=== PATIENT | male | born 1965 | race Caucasian/White ===

== ENCOUNTER 2020-03-20 15:14 | Emergency (ER) | payer OTHER ==
[2020-03-20] MEDS ORDERED: Sodium Chloride 0.9% 10 ML Syringe FLUSH PRN (15:35)
[2020-03-20] MEDS ORDERED: Aspirin 81 MG Tab.Chew PO ONE (15:40)
--- NOTE | 2020-03-20 16:04 | EDM.PDOC ---
ED HPI GENERAL MEDICAL PROBLEM - General Chief Complaint: Chest Pain Stated Complaint: CHEST PAIN [facility] Time Seen by Provider: 03/20/20 15:35 Source of Information: Reports: Patient History Limitations: Reports: No Limitations - History of Present Illness INITIAL COMMENTS - FREE TEXT/NARRATIVE: Patient is a 54-year-old male presenting to the emergency department with com plaints of left-sided chest pain. He states onset was around noon today and he has had 3 episodes of significantly worsening pain which resolves after a few minutes. 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 Prior to coming to the ER, [facility] to ensure that this is just a flareup of his Teitze syndrome as opposed to cardiac. States that the [facility] was found to be normal, however they still sent him to the ER for a further cardiac work-up. He states that direct left of his upper sternum is tender to palpation and radiates throughout the left side of his chest. He denies any shortness of breath or diaphoresis. Left Chest Pain Score (Numeric/FACES): 8 - Related Data Allergies Allergy/AdvReac Type Severity Reaction Status Date / Time No Known Allergies Allergy Verified 03/20/20 15:26 Home Meds: Home Meds Aspirin [Miya Chewable Aspirin] 1 tab PO DAILY 03/20/20 [History] Lisinopril/Hydrochlorothiazide [Lisinopril-HCTZ 10-12.5 MG] 0 mg PO DAILY 03/20/20 [History] Omeprazole 20 mg PO DAILY 03/20/20 [History] buPROPion [Wellbutrin] 0 mg PO DAILY 03/20/20 [History] Past Medical History HEENT History: Reports: Impaired Vision Cardiovascular History: Reports: High Cholesterol, Hypertension, Other (See Below) Other Cardiovascular History: Tietze Syndrome Respiratory History: Reports: None Gastrointestinal History: Reports: GERD Genitourinary History: Reports: None Neurological History: Reports: None Psychiatric History: Reports: Depression Endocrine/Metabolic History: Reports: Obesity/BMI 30+ Hematologic History: Reports: None Immunologic History: Reports: None Oncologic (Cancer) History: Reports: None Dermatologic History: Reports: None - Infectious Disease History Infectious Disease History: Reports: None - Past Surgical History GI Surgical History: Reports: Hernia Repair/Other Musculoskeletal Surgical History: Reports: Knee Replacement, Other (See Below) Other Musculoskeletal Surgeries/Procedures:: Hand Surgeries Social & Family History - Tobacco Use Smoking Status *Q: Never Smoker - Caffeine Use Caffeine Use: Reports: Coffee - Recreational Drug Use Recreational Drug Use: No ED ROS GENERAL - Review of Systems Review Of Systems: See Below Constitutional: Reports: No Symptoms. Denies: Fever, Chills, Weakness HEENT: Reports: No Symptoms Respiratory: Reports: No Symptoms. Denies: Shortness of Breath, Wheezing, Cough Cardiovascular: Reports: Chest Pain. Denies: Dyspnea on Exertion, Edema, Lightheadedness, Palpitations, Syncope Endocrine: Reports: No Symptoms GI/Abdominal: Reports: No Symptoms : Reports: No Symptoms Musculoskeletal: Reports: No Symptoms Skin: Reports: No Symptoms Neurological: Reports: No Symptoms. Denies: Dizziness Psychiatric: Reports: No Symptoms Hematologic/Lymphatic: Reports: No Symptoms Immunologic: Reports: No Symptoms ED EXAM, GENERAL - Physical Exam Exam: See Below General Appearance: Alert, WD/WN, No Apparent Distress Respiratory/Chest: No Respiratory Distress, Lungs Clear, Normal Breath Sounds, No Accessory Muscle Use, Other (tenderness to palpation left of his sternum at the level of the 2nd and 3rd intercostal spaces.) Cardiovascular: Normal Peripheral Pulses, Regular Rate, Rhythm, No Edema, No Gallop, No JVD, No Murmur, No Rub GI/Abdominal: Normal Bowel Sounds, Soft, Non-Tender, No Organomegaly, No Distention, No Abnormal Bruit, No Mass Neurological: Alert, Oriented, CN II-XII Intact, Normal Cognition, Normal Gait, Normal Reflexes, No Motor/Sensory Deficits Psychiatric: Normal Affect, Normal Mood Skin Exam: Warm, Dry, Intact, Normal Color, No Rash Course - Vital Signs Last Recorded V/S: Last Vital Signs Temp 97.5 F 03/20/20 15:23 Pulse 79 03/20/20 15:23 Resp 16 03/20/20 15:23 BP 162/99 H 03/20/20 15:23 Pulse Ox 93 L 03/20/20 15:23 - Orders/Labs/Meds Orders: Active Orders 24 hr Category Date Time Status Peripheral IV Insertion Adult [OM.PC] Stat Oth 03/20/20 15:35 Ordered Labs: Laboratory Tests 03/20/20 03/20/20 Range/Units 15:30 15:30 WBC 6.83 (4.23-9.07) K/mm3 RBC 5.14 (4.63-6.08) M/mm3 Hgb 15.8 (13.7-17.5) gm/dl Hct 45.1 (40.1-51.0) % MCV 87.7 (79.0-92.2) fl MCH 30.7 (25.7-32.2) pg MCHC 35.0 (32.2-35.5) g/dl RDW Std Deviation 41.4 (35.1-43.9) fL Plt Count 248 (163-337) K/mm3 MPV 10.4 (9.4-12.3) fl Neut % (Auto) 60.1 (34.0-67.9) % Lymph % (Auto) 26.4 (21.8-53.1) % Elbert % (Auto) 10.8 (5.3-12.2) % Eos % (Auto) 1.9 (0.8-7.0) Baso % (Auto) 0.4 (0.1-1.2) % Neut # (Auto) 4.10 (1.78-5.38) K/mm3 Lymph # (Auto) 1.80 (1.32-3.57) K/mm3 Elbert # (Auto) 0.74 (0.30-0.82) K/mm3 Eos # (Auto) 0.13 (0.04-0.54) K/mm3 Baso # (Auto) 0.03 (0.01-0.08) K/mm3 Sodium 141 (136-145) mEq/L Potassium 3.4 L (3.5-5.1) mEq/L Chloride 103 (98-107) mEq/L Carbon Dioxide 30 (21-32) mEq/L Anion Gap 11.4 (5-15) BUN 15 (7-18) mg/dL Creatinine 1.1 (0.7-1.3) mg/dL Est Cr Clr Drug Dosing 80.81 mL/min Estimated GFR (MDRD) > 60 (>60) mL/min BUN/Creatinine Ratio 13.6 L (14-18) Glucose 80 (74-106) mg/dL Calcium 9.6 (8.5-10.1) mg/dL Total Bilirubin 0.7 (0.2-1.0) mg/dL AST 16 (15-37) U/L ALT 40 (16-63) U/L Alkaline Phosphatase 62 (46-116) U/L Troponin I < 0.017 (0.00-0.056) ng/mL C-Reactive Protein 0.3 (<1.0) mg/dL Total Protein 7.3 (6.4-8.2) g/dl Albumin 4.2 (3.4-5.0) g/dl Globulin 3.1 gm/dL Albumin/Globulin Ratio 1.4 (1-2) Meds: Medications Discontinued Medications Generic Name Dose Route Start Last Admin Trade Name Everett PRN Reason Stop Dose Admin Aspirin 324 mg 03/20/20 15:40 03/20/20 15:46 Aspirin PO 03/20/20 15:41 324 mg ONETIME ONE Administration Sodium Chloride 10 ml 03/20/20 15:35 03/20/20 15:38 Saline Flush FLUSH 10 ml ASDIRECTED PRN Administration Keep Vein Open - Re-Assessments/Exams Free Text/Narrative Re-Assessment/Exam: Patient is a 54-year-old male with a known history of Irene syndrome who presents to the emergency department with complaints of left-sided chest pain, as well as 3 episodes of worsening chest pain throughout the day today. He does have significant tenderness to palpation over the left chest wall at the level of the second and third intercostal space. He states that he generally gets cortisone injections to treat the pain, however it has been quite a while since he got those. He does have Flexeril at home that he uses to treat intermittent symptoms, however he states this makes him quite drowsy. I have ordered a CBC, CMP, CRP, troponin, 2 view chest, and EKG. give 324 mg of chewable aspirin. Since patient has to drive home and Flexeril causes significant sedation for him, we will not give that at this time. 03/20/20 16:11 Patient's work-up was found to be grossly unremarkable. Blood work was normal. Troponin was negative. EKG showed no signs of ischemia. Chest x-ray was normal. We will discharge the patient home with instructions [facility]. Discharge instructions as documented. Departure - Departure Time of Disposition: 16:14 Disposition: Home, Self-Care 01 Condition: Good Clinical Impression: Anterior chest wall pain Instructions: Chest Wall Pain, [id number] Referrals: Yarely Rangel MD [Primary Care Provider] - Forms: ED Department Discharge Additional Instructions: You were seen in the emergency department today for left-sided chest wall pain. Work-up included blood work, an EKG of your heart, and a chest x-ray. Your work-up was found to be normal. Your cardiac enzymes were negative indicating that you are not having a cardiac event. Your EKG was found to be normal with no signs of cardiac ischemia. The likely cause of your pain today is your Te itze syndrome. Recommend that you go home and take a Flexeril as you had previously planned. Follow-up with the [facility] to have a cortisone injection completed. Return to the ER for any new or worsening symptoms of concern. Sepsis Event Note (ED) - Evaluation Sepsis Screening Result: No Definite Risk - Focused Exam Vital Signs: Vital Signs Temp Pulse Resp BP Pulse Ox 03/20/20 15:23 97.5 F 79 16 162/99 H 93 L - My Orders Last 24 Hours: My Active Orders 03/20/20 15:35 Peripheral IV Insertion Adult [OM.PC] Stat - Assessment/Plan Last 24 Hours: My Active Orders 03/20/20 15:35 Peripheral IV Insertion Adult [OM.PC] Stat
--- NOTE | 2020-03-20 16:15 | CR ---
Chest: 2 views of the chest were obtained. Comparison: No previous chest imaging. Heart size and mediastinum are normal. Lungs are clear with no acute parenchymal change. Bony structures are unremarkable. Impression: 1. Nothing acute is seen on 2 view chest x-ray. Diagnostic code #1 Study was dictated in MDT
== END 2020-03-20 16:30 | disposition home or self-care (01) ==
LOC: JD.ED 15:14
DX: R07.89 Other chest pain (principal); K21.9 Gastro-esophageal reflux disease without esophagitis; F32.9 Major depressive disorder, single episode, unspecified; E66.9 Obesity, unspecified; Z79.82 Long term (current) use of aspirin; Z79.899 Other long term (current) drug therapy; Z68.33 Body mass index [BMI] 33.0-33.9, adult
CPT/HCPCS: 36415; 71046; 80053; 84484; 85025; 86140; 93005; 99285; A9270; 93010; 99283

== ENCOUNTER 2020-09-11 14:24 | Emergency (ER) | payer OTHER ==
[2020-09-11] MEDS ORDERED: Ondansetron 4 MG/2 ML SDV IVPUSH ONE (14:49)
[2020-09-11] MEDS ORDERED: HYDROmorphone 1 MG/ML Syringe IVPUSH ONE (14:49)
[2020-09-11] MEDS ORDERED: Sodium Chloride 0.9% 10 ML Syringe FLUSH PRN (14:57)
--- NOTE | 2020-09-11 15:20 | EDM.PDOC ---
ED HPI GENERAL MEDICAL PROBLEM - General Chief Complaint: Back Pain or Injury Stated Complaint: BACK INJURY Time Seen by Provider: 09/11/20 14:28 Source of Information: Reports: Patient, RN Notes Reviewed History Limitations: Reports: No Limitations - History of Present Illness INITIAL COMMENTS - FREE TEXT/NARRATIVE: Patient is a 55-year-old male who presents to the ED for evaluation of his back injury. Patient notes that earlier this morning, he was loading a ball onto the trailer, and the bolt got feisty, so the patient scramble to get away from him he jumped over a fence, and slipped on some mud when he was landing, and then he landed directly onto his tailbone. He was able to walk after and did not have much of an issue however he went home sat in a hot tub, took some Tylenol around 11 PM, and he notes that the pain is only getting worse, he feels some pain into his groin and scrotum and feels like his scrotum is going to explode, states he is not had any issues with his back prior to this. He is denying any numbness or tingling into his legs, and he has not lost control of his bladder or bowels. He further denies any fevers or chills, cough/shortness of breath, nausea/vomiting/diarrhea, he states that he is just having quite a bit of pain. Treatments AERONAUTICAL DRAFTER: Reports: Acetaminophen Other Treatments AERONAUTICAL DRAFTER: 1 gram Lower Back Pain Score (Numeric/FACES): 10 - Related Data Allergies Allergy/AdvReac Type Severity Reaction Status Date / Time No Known Allergies Allergy Verified 09/11/20 14:32 Home Meds: Home Meds Aspirin [Miya Chewable Aspirin] 1 tab PO DAILY 03/20/20 [History] Lisinopril/Hydrochlorothiazide [Lisinopril-HCTZ 10-12.5 MG] 0 mg PO DAILY 03/20/20 [History] Omeprazole 20 mg PO DAILY 03/20/20 [History] buPROPion [Wellbutrin] 0 mg PO DAILY 03/20/20 [History] Acetaminophen/oxyCODONE [Percocet 325-5 MG] 1 each PO Q6H PRN #20 tab 09/11/20 [Rx] Cholecalciferol (Vitamin D3) [Vitamin D] 1 tab PO DAILY 09/11/20 [History] Vit C/Vit E AC/Lut/Copper/Zinc [Preservision Softgel] 1 each PO DAILY 09/11/20 [History] Past Medical History HEENT History: Reports: Impaired Vision Cardiovascular History: Reports: High Cholesterol, Hypertension, Other (See Below) Other Cardiovascular History: Tietze Syndrome Respiratory History: Reports: None Gastrointestinal History: Reports: GERD Genitourinary History: Reports: None Neurological History: Reports: None Psychiatric History: Reports: Depression Endocrine/Metabolic History: Reports: Obesity/BMI 30+ Hematologic History: Reports: None Immunologic History: Reports: None Oncologic (Cancer) History: Reports: None Dermatologic History: Reports: None - Infectious Disease History Infectious Disease History: Reports: None, Novel Coronavirus - Past Surgical History HEENT Surgical History: Reports: None GI Surgical History: Reports: Hernia Repair/Other Male Surgical History: Reports: None Musculoskeletal Surgical History: Reports: Knee Replacement, Other (See Below) Other Musculoskeletal Surgeries/Procedures:: Hand Surgeries Social & Family History - Family History Family Medical History: No Pertinent Family History - Tobacco Use Tobacco Use Status *Q: Never Tobacco User - Caffeine Use Caffeine Use: Reports: Coffee - Recreational Drug Use Recreational Drug Use: No ED ROS GENERAL - Review of Systems Review Of Systems: Comprehensive ROS is negative, except as noted in HPI. ED EXAM,LOWER BACK PAIN/INJURY - Physical Exam Exam: See Below Exam Limited By: No Limitations General Appearance: Alert, WD/WN, No Apparent Distress (pt appears to be in a moderate amount of pain) Respiratory/Chest: No Respiratory Distress, Lungs Clear, Normal Breath Sounds, No Accessory Muscle Use, Chest Non-Tender Cardiovascular: Normal Peripheral Pulses, Regular Rate, Rhythm, No Edema GI/Abdominal: Normal Bowel Sounds, Soft, Non-Tender, No Distention, No Mass Extremities: Normal Inspection, Normal Range of Motion, Normal Capillary Refill Neurological: Alert, Normal Mood/Affect, Normal Dorsiflexion, Normal Plantar Flexion Psychiatric: Normal Affect, Normal Mood Skin Exam: Warm, Dry, Intact, Normal Color, No Rash Course - Vital Signs Last Recorded V/S: Last Vital Signs Temp 97.2 F 09/11/20 14:37 Pulse 78 09/11/20 14:37 Resp 20 09/11/20 14:37 BP 178/105 H 09/11/20 14:37 Pulse Ox 98 09/11/20 14:37 - Orders/Labs/Meds Orders: Active Orders 24 hr Category Date Time Status Peripheral IV Care [RC] . DIRECTED Care 09/11/20 14:57 Ordered Sodium Chloride 0.9% [Saline Flush] Med 09/11/20 14:57 Ordered 10 ml FLUSH ASDIRECTED PRN Peripheral IV Insertion Adult [OM.PC] Routine Oth 09/11/20 14:57 Ordered Medication Orders Sodium Chloride (Saline Flush) 10 ml FLUSH ASDIRECTED PRN PRN Reason: Keep Vein Open Last Admin: 09/11/20 15:03 Dose: 10 ml Documented by: Meds: Medications Generic Name Dose Route Start Last Admin Trade Name Freq PRN Reason Stop Dose Admin Sodium Chloride 10 ml 09/11/20 14:57 09/11/20 15:03 Saline Flush FLUSH 10 ml ASDIRECTED PRN Administration Keep Vein Open Discontinued Medications Generic Name Dose Route Start Last Admin Trade Name Freq PRN Reason Stop Dose Admin Hydromorphone HCl 1 mg 09/11/20 14:49 09/11/20 15:01 Dilaudid IVPUSH 09/11/20 14:50 1 mg ONETIME ONE Administration Ondansetron HCl 4 mg 09/11/20 14:49 09/11/20 15:00 Zofran IVPUSH 09/11/20 14:50 4 mg ONETIME ONE Administration - Re-Assessments/Exams Free Text/Narrative Re-Assessment/Exam: 09/11/20 14:57 Patient presents to the ED for his tailbone/pelvis injury, we will go ahead and get a sacrum/coccyx imaging along with pelvis imaging, due to the pain in his groin. He will get 1 mg IV Dilaudid for management along with 4 mg Zofran due to the pain that he is receiving. Nursing staff did place an IV at time of triage. 09/11/20 15:54 Patient notes that his pain is much better, official radiology read states no acute fractures or other bony abnormalities of the sacrum/coccyx and pelvis views taken today. We will go ahead and discharge patient on some tablets of Percocet, he notes that he has muscle relaxers at home for ongoing pain management. Departure - Departure Time of Disposition: 15:54 Disposition: Home, Self-Care 01 Condition: Good Clinical Impression: Pain in the coccyx Fall Qualifiers: Encounter type: initial encounter Qualified Code(s): W19.XXXA - Unspecified fall, initial encounter - Discharge Information *PRESCRIPTION DRUG MONITORING PROGRAM REVIEWED*: Yes *COPY OF PRESCRIPTION DRUG MONITORING REPORT IN PATIENT YESSY: No Instructions: Back Injury Prevention, [id number] Referrals: PCP,Not In Area [Primary Care Provider] - Forms: ED Department Discharge Additional Instructions: You were seen in this ER for your fall and pain in your tailbone. X-rays were obtained, demonstrate no acute fracture or other bony abnormalities. You were given a prescription for a strong pain medication, oxycodone/acetaminophen 5/325 mg, please take 1 tab every 6 hours as needed for pain not relieved by Tylenol or ibuprofen alone. Please note this medication does contain Tylenol in it, so do not take more than 4000 mg in a 24-hour time span. These medications can be addictive, so please take as few as possible to achieve adequate pain control. These meds can also be quite constipating, recommend that you increase your oral fluid intake and take a stool softener like MiraLAX while taking these medications. Do not drive while taking this medication. You may take your muscle relaxers that you have at home, as directed for muscle spasms if these should develop. Highly recommend that you obtain a soft pillow or donut type pillow, to sit on for the next few days, as you will likely be quite tender and it would be difficult to sit or find a position of comfort. Please return to the ER at any time if your symptoms change or worsen. Sepsis Event Note (ED) - Evaluation Sepsis Screening Result: No Definite Risk - Focused Exam Vital Signs: Vital Signs Temp Pulse Resp BP Pulse Ox 09/11/20 14:37 97.2 F 78 20 178/105 H 98 - My Orders Last 24 Hours: My Active Orders 09/11/20 14:57 Peripheral IV Care [RC] . DIRECTED Sodium Chloride 0.9% [Saline Flush] 10 ml FLUSH ASDIRECTED PRN Peripheral IV Insertion Adult [OM.PC] Routine - Assessment/Plan Last 24 Hours: My Active Orders 09/11/20 14:57 Peripheral IV Care [RC] . DIRECTED Sodium Chloride 0.9% [Saline Flush] 10 ml FLUSH ASDIRECTED PRN Peripheral IV Insertion Adult [OM.PC] Routine
--- NOTE | 2020-09-11 15:39 | CR ---
Pelvis: AP view of the pelvis was obtained. Comparison: No previous study. Joint spaces within both hips are fairly well preserved. Sacroiliac joints show minimal degenerative change within the inferior left side. Minimal disc space narrowing is noted within the lower lumbar spine. No acute fracture or other abnormality is appreciated. Impression: 1. Minimal degenerative change. Nothing acute is seen. Diagnostic code #2
--- NOTE | 2020-09-11 15:40 | CR ---
Sacrum and coccyx: 3 views of the sacrum and coccyx were obtained. Minimal degenerative change within the inferior sacroiliac joint is noted. No focal erosive change or other abnormality is appreciated. No acute fracture or other abnormality is seen. Impression: 1. Slight degenerative change. 2. Nothing acute is appreciated on three-view sacrum and coccyx study. Diagnostic code #2
== END 2020-09-11 16:05 | disposition home or self-care (01) ==
LOC: JD.ED 14:24
DX: S39.92XA Unspecified injury of lower back, initial encounter (principal); I10 Essential (primary) hypertension; K21.9 Gastro-esophageal reflux disease without esophagitis; E66.9 Obesity, unspecified; Z68.33 Body mass index [BMI] 33.0-33.9, adult; Z79.82 Long term (current) use of aspirin; Z79.899 Other long term (current) drug therapy; W01.0XXA Fall on same level from slipping, tripping and stumbling without subsequent striking against object, initial encounter
CPT/HCPCS: 72170; 72220; 96374; 96375; 99283; J1170; J2405; 99284

== ENCOUNTER 2024-02-26 15:36 | Emergency (ER) | payer OTHER ==
[2024-02-26 16:15] LABS: BASOPHILS ABSOLUTE AUTO 0.1 K/mm3 (0.0-0.2); BASOPHILS PERCENT AUTO 0.7 % (0.0-1.0); EOSINOPHILS ABSOLUTE AUTO 0.3 K/mm3 (0.0-0.4); EOSINOPHILS PERCENT AUTO 3.4 % (0.0-6.0); HEMATOCRIT 45.5 % (42.0-52.0); HEMOGLOBIN 15.9 gm/dl (14.0-18.0); IMMATURE GRAN ABSOLUTE AUTO 0.02 K/mm3 (0.00-0.05); IMMATURE GRAN PERCENT AUTO 0.2 % (0.0-0.4); LYMPHOCYTES ABSOLUTE AUTO 1.8 K/mm3 (1.0-4.8); LYMPHOCYTES PERCENT AUTO 21.4 % (24.0-44.0); MEAN CORPUSCULAR HEMOGLOBIN 30.9 pg (28.0-32.0); MEAN CORPUSCULAR HGB CONC 34.9 g/dl (32.0-36.0); MEAN CORPUSCULAR VOLUME 88.5 fl (83.0-99.0); MEAN PLATELET VOLUME 9.7 fl (9.4-12.4); MONOCYTES ABSOLUTE AUTO 0.7 K/mm3 (0.0-0.8); MONOCYTES PERCENT AUTO 8.2 % (0.0-8.0); NEUTROPHILS ABSOLUTE AUTO 5.4 K/mm3 (1.8-7.7); NEUTROPHILS PERCENT AUTO 66.1 % (41.0-71.0); PLATELET COUNT,PLT 222 K/mm3 (150-400); RED BLOOD CELL COUNT 5.14 M/mm3 (4.52-5.90); WHITE BLOOD CELL COUNT,WBC 8.19 K/mm3 (3.9-11.3)
[2024-02-26] MEDS: Sucralfate Suspension 1 GM/10 ML Cup PO ONE (16:33)
[2024-02-26 16:51] LABS: A/G RATIO 1.5 (1-2); ALBUMIN 4.2 g/dl (3.4-5.0); ANION GAP 12.7 (5-15); BILIRUBIN TOTAL 0.9 mg/dL (0.2-1.0); BUN/CREATININE RATIO 17.5 (14-18); CALCIUM 9.6 mg/dL (8.5-10.1); CREATININE 1.2 mg/dL (0.7-1.3); EST CRCL DRUG DOSING (CG) 70.59 mL/min; POTASSIUM,K 3.7 mEq/L (3.5-5.1); PROTEIN TOTAL,TP 7.1 g/dl (6.4-8.2)
== END 2024-02-26 17:44 | disposition home or self-care (01) ==
LOC: JD.ED 15:36
DX: K21.00 Gastro-esophageal reflux disease with esophagitis, without bleeding (principal); I10 Essential (primary) hypertension; E78.00 Pure hypercholesterolemia, unspecified; K21.9 Gastro-esophageal reflux disease without esophagitis; Z86.16 Personal history of COVID-19; Z79.82 Long term (current) use of aspirin; Z79.899 Other long term (current) drug therapy
CPT/HCPCS: 36415; 80053; 83735; 84484; 85025; 93005; 99285; A9270; 93010; 99283

== ENCOUNTER 2024-10-08 22:22 | Emergency (ER) | payer OTHER ==
[2024-10-08] MEDS ORDERED: Sodium Chloride 0.9% 10 ML Syringe FLUSH PRN (22:52)
[2024-10-08 23:00] LABS: BASOPHILS ABSOLUTE AUTO 0.1 K/mm3 (0.0-0.2); BASOPHILS PERCENT AUTO 0.7 % (0.0-1.0); EOSINOPHILS ABSOLUTE AUTO 0.2 K/mm3 (0.0-0.4); EOSINOPHILS PERCENT AUTO 1.8 % (0.0-6.0); HEMATOCRIT 42.1 % (42.0-52.0); HEMOGLOBIN 14.8 gm/dl (14.0-18.0); IMMATURE GRAN ABSOLUTE AUTO 0.02 K/mm3 (0.00-0.05); IMMATURE GRAN PERCENT AUTO 0.2 % (0.0-0.4); LYMPHOCYTES ABSOLUTE AUTO 2.1 K/mm3 (1.0-4.8); LYMPHOCYTES PERCENT AUTO 23.4 % (24.0-44.0); MEAN CORPUSCULAR HEMOGLOBIN 31.6 pg (28.0-32.0); MEAN CORPUSCULAR HGB CONC 35.2 g/dl (32.0-36.0); MEAN PLATELET VOLUME 9.4 fl (9.4-12.4); MONOCYTES ABSOLUTE AUTO 0.7 K/mm3 (0.0-0.8); MONOCYTES PERCENT AUTO 7.8 % (0.0-8.0); NEUTROPHILS PERCENT AUTO 66.1 % (41.0-71.0); PLATELET COUNT,PLT 222 K/mm3 (150-400); RED BLOOD CELL COUNT 4.68 M/mm3 (4.52-5.90); WHITE BLOOD CELL COUNT,WBC 9.06 K/mm3 (3.9-11.3)
[2024-10-08 23:15] LABS: A/G RATIO 1.4 (1-2); ALBUMIN 3.8 g/dl (3.4-5.0); ANION GAP 13.9 (5-15); BILIRUBIN TOTAL 0.5 mg/dL (0.2-1.0); BUN/CREATININE RATIO 19.2 (14-18); CREATININE 1.2 mg/dL (0.7-1.3); EST CRCL DRUG DOSING (CG) 69.72 mL/min; ETHANOL BLOOD MEDICAL 0.03 gm% (0.00); MAGNESIUM 1.8 mg/dL (1.8-2.4); PROTEIN TOTAL,TP 6.5 g/dl (6.4-8.2)
[2024-10-08 23:20] LABS: POTASSIUM,K 3.9 mEq/L (3.5-5.1)
[2024-10-09] MEDS: Sodium Chloride 0.9% 1,000 ML IV SCH (02:12)
== END 2024-10-09 01:15 | disposition home or self-care (01) ==
LOC: JD.ED 22:22
DX: R55 Syncope and collapse (principal); I10 Essential (primary) hypertension; E78.00 Pure hypercholesterolemia, unspecified; Z79.82 Long term (current) use of aspirin; Z79.899 Other long term (current) drug therapy; Z86.16 Personal history of COVID-19
CPT/HCPCS: 36415; 70450; 70450-26; 72131; 72131-26; 80053; 80307; 83735; 84484; 85025; 93005; 99285

== ENCOUNTER 2025-02-06 18:15 | Emergency (ER) | payer OTHER | END 2025-02-06 19:38 | disposition home or self-care (01) | LOC: JD.ED 18:15 | DX: S80.01XA Contusion of right knee, initial encounter (principal); I10 Essential (primary) hypertension; E78.00 Pure hypercholesterolemia, unspecified; K21.9 Gastro-esophageal reflux disease without esophagitis; E66.9 Obesity, unspecified; Z79.899 Other long term (current) drug therapy; Z79.82 Long term (current) use of aspirin; Z86.16 Personal history of COVID-19; W22.8XXA Striking against or struck by other objects, initial encounter | CPT/HCPCS: 73562-26-RT; 73562-RT; 99283 ==